=== PATIENT | female | born 1965 | race American Indian/Alaskan Native ===

== ENCOUNTER 2019-07-29 13:17 | Outpatient (CLI) | payer OTHER ==
--- NOTE | 2019-07-30 08:55 | Ultrasound Report ---
ULTRASOUND THYROID INDICATION: GOITER. COMPARISON: None available. FINDINGS: RIGHT LOBE: Size: 5.5 x 1.7 x 2.5 cm. Echogenicity: Diffusely nodular echo pattern. Vascularity: Normal. Subcentimeter nodules: Numerous. LEFT LOBE: Size: 6.1 x 2.7 x 2.8 cm. Echogenicity: Diffusely nodular echo pattern. Vascularity: Normal. Subcentimeter nodules: Numerous. ISTHMUS: Normal Thickness: 0.7 cm. NODULES LARGER THAN 1 CM OR SUSPICIOUS NODULES: A right upper pole heterogeneous hypoechoic nodule measures 1.9 x 1.1 x 1.5 cm. A complex predominant ly cystic nodule in the mid right thyroid lobe measures 1.7 x 1.1 x 1.5 cm. It contains an 8 mm mural nodule. A 1.4 x 0.9 x 1.4 cm heterogeneous hypoechoic nodule with peripheral calcifications in the m id right thyroid lobe. A heterogeneous hypoechoic nodule in the mid right thyroid lobe adjacent to th e isthmus measures 1.4 cm. A complex multicystic and solid dominant nodule in the midportion of the left lobe measures 4.0 x 1.9 x 2.5 cm. It is predominantly multicystic. One of the nodules has peripheral calcifications. Lymph nodes: No abnormal lymph nodes. Parathyroid glands: No abnormal parathyroid gland. Additional findings: None. IMPRESSION: 1. Multinodular goiter with moderate diffuse enlargement. 2. Multiple bilateral nodules. A suspicious nodule on the right is in the midportion of the gland and contains an 8 mm mural nodule. Consider ultrasound-guided FNA of this nodule and ultrasound-guided F NA of the solid portion of the dominant left thyroid nodule. ACR TI-RADS Recommendations TI-RADS 1 (0 points) -- Benign. No FNA or follow-up. TI-RADS 2 (1-2 points) -- Not suspicious. No FNA or follow-up. TI-RADS 3 (3 points) -- Mildly suspicious. Follow up in 1 year if 1.5 cm. FNA if 2.5 cm. TI-RADS 4 (4-6 points) -- Moderately suspicious. Follow up in 1 year if 1.0 cm. FNA if 1.5 cm. TI-RADS 5 (7+ points) -- Highly suspicious. Follow up in 1 year if 0.5 cm. FNA if 1.0 cm. Signer Name: Lorenzo Horta MD Signed: 07/30/2019 8:51 AM Workstation Name: [id number]
== END 2019-07-29 13:18 | disposition home or self-care (01) ==
LOC: SPVWC 13:17
PROVIDERS: ATTEND Family Medicine
DX: E04.2 Nontoxic multinodular goiter (principal)
CPT/HCPCS: 76536

== ENCOUNTER 2020-07-26 08:00 | Outpatient (CLI) | payer OTHER ==
--- NOTE | 2020-07-27 14:42 | Ultrasound Report ---
ULTRASOUND THYROID INDICATION / CLINICAL INFORMATION: Multinodular goiter. COMPARISON: Thyroid ultrasound 07/29/2019 FINDINGS: RIGHT LOBE: Size = 5.9 x 2.4 x 2.9 cm. - Echogenicity/Vascularity: Mildly heterogeneous echogenicity with slightly increased vascularity. - Nodules < 1 cm: Multiple, none of which meet criteria for further follow-up or fine needle aspirati on. - Nodules >= 1 cm or Suspicious Nodules: -- NODULE # 1 -- Location: right mid -- Size: 1.9 x 1.2 x 2.1 cm. Average size = 1.7 cm. -- Composition: Mixed cystic & solid = 1 point -- Echogenicity: Hypoechoic = 2 points -- Shape: [id number]-tjur-[id number] = 0 points -- Margin: Smooth = 0 points -- Echogenic Foci: Punctate echogenic foci = 3 points -- Additional Findings: None. -- ACR TI-RADS Score = 6. -- ACR TI-RADS Category = TR-4 (4-6 points). -- NODULE # 1 -- Location: right upper -- Size: 1.6 x 0.8 x 0.9 cm. Average size = 1.1 cm. -- Composition: Mixed cystic & solid = 1 point -- Echogenicity: Hyperechoic or Isoechoic = 1 point -- Shape: Xfsak-qvpt-emci = 0 points -- Margin: Ill-defined = 0 points -- Echogenic Foci: None = 0 points -- Additional Findings: None. -- ACR TI-RADS Score = 2. -- ACR TI-RADS Category = TR-2 (1-2 points). LEFT LOBE: Size = 6.2 x 2.3 x 3.5 cm. - Echogenicity/Vascularity: Heterogeneous echogenicity with mildly increased vascularity. - Nodules < 1 cm: Multiple, none of which meet criteria for further follow-up or fine needle aspirati on. - Nodules >= 1 cm or Suspicious Nodules: -- NODULE # 1 -- Location: left mid -- Size: 3.1 x 1.7 x 3.0 cm. Average size = 2.6 cm. -- Composition: Mixed cystic & solid = 1 point -- Echogenicity: Hypoechoic = 2 points -- Shape: [id number] = 0 points -- Margin: Ill-defined = 0 points -- Echogenic Foci: Punctate echogenic foci = 3 points -- Additional Findings: None. -- ACR TI-RADS Score = 6. -- ACR TI-RADS Category = TR-4 (4-6 points). ISTHMUS: No significant abnormality. Thickness = 0.8 cm. - Nodules < 1 cm: None. - Nodules >= 1 cm or Suspicious Nodules: None. LYMPH NODES: No abnormal lymph nodes. PARATHYROID GLANDS: No abnormal parathyroid gland identified. ADDITIONAL FINDINGS: None. IMPRESSION: 1. Enlarged thyroid with findings suggestive of acute thyroiditis. 2. Bilateral moderately suspicious thyroid nodules. Both nodules are located at the interpolar region s and meet criteria for fine needle aspiration. NOTE: Nodule size based on mean (average) size of 3 dimensions. NOTE: Nodules < 1 cm do not typically require follow-up or FNA unless there are suspicious features ( MARIA T, 2015) ACR TI-RADS Thyroid Nodule Recommendations TI-RADS 1 (0 points) ----- BENIGN. No Fine Needle Aspirate biopsy (FNA) or follow-up. TI-RADS 2 (1-2 points) -- NOT SUSPICIOUS. No FNA or follow-up. TI-RADS 3 (3 points) ----- MILDLY SUSPICIOUS. Follow up in 1 year if >= 1.5 cm. FNA if >= 2.5 cm. TI-RADS 4 (4-6 points) -- MODERATELY SUSPICIOUS. Follow up in 1 year if >= 1.0 cm. FNA if >= 1.5 cm. TI-RADS 5 (7+ points) --- HIGHLY SUSPICIOUS. Follow up in 1 year if >= 0.5 cm. FNA if >= 1.0 cm. Reference: ACR Thyroid Imaging, Reporting and Data System (TI-RADS): White Paper of the ACR TI-RADS C ommittee. J AM [employer] Radiol 2017;14:587-595. (Additional recommendations based on [employer] 2015 guidelines.) Signer Name: Dennis Walden MD Signed: 07/27/2020 2:37 PM Workstation Name: [id number]
== END 2020-07-26 08:01 | disposition home or self-care (01) ==
LOC: SPVWC 08:00
PROVIDERS: ATTEND Internal Medicine Endocrinology, Diabetes & Metabolism
DX: E04.9 Nontoxic goiter, unspecified (principal); E04.2 Nontoxic multinodular goiter
CPT/HCPCS: 76536